=== PATIENT | female | born 1935 | race Caucasian/White ===

== ENCOUNTER → 2020-01-18 10:07 | Outpatient (CLI) | payer MEDICARE, SELFPAY ==
--- NOTE | 2020-01-18 10:10 | DI.RAD.S_ITS ---
PROCEDURE: XR LUMBAR SPINE MIN 4V INDICATIONS: Chronic LBP TECHNIQUE: 5 views of the lumbar spine were acquired. COMPARISON: [facility] [place], CR, XR LUMBAR SPINE WITH OBLIQUES, 09/19/2017, 15:23. FINDINGS: Bones: The 5 nonrib-bearing vertebrae are present. There is a mild to moderate degree of degenerative disc disease at L4-5 and L5-S1 with facet osteoarthritis symmetric bilaterally and moderate in severity at these 2 levels. This is associated with grade 1 anterolisthesis of L4 on L5 which likely would predispose to spinal and foraminal stenosis at that level otherwise there is normal bony alignment. There is a new finding of endplate vertebral body compression fractures involving the adjacent inferior endplate of L1 and superior endplate of L2 when compared to the 2018 plain films. No suspicious bony lesions. Soft tissues: Overlying bowel gas pattern is normal. No suspicious soft tissue calcifications. Oblique images: No pars defects. IMPRESSION: Mild to moderate lower lumbosacral spine degenerative disc disease and moderate facet osteoarthritis at L4-5 and L5-S1. Ligamen this laxity allows anterolisthesis grade 1 of L4 on L5. This is stable from 2018. Note is made of a superior endplate impaction fracture, potentially chronic in this clinical circumstance, at L2 and to a lesser degree at the inferior endplate of L1. This finding, however, was not present on comparison lumbosacral spine plain films 09/19/17. Dictated by: Deo Jamil M.D. on 01/18/2020 at 11:06 Approved by: Deo Jamil M.D. on 01/18/2020 at 11:10
== END ==
PROVIDERS: PCP Family Medicine; Referring Provider Physical Medicine & Rehabilitation; Visit Provider Physical Medicine & Rehabilitation
DX: M54.5 Low back pain (principal); M51.16 Intervertebral disc disorders with radiculopathy, lumbar region; M51.17 Intervertebral disc disorders with radiculopathy, lumbosacral region; M47.26 Other spondylosis with radiculopathy, lumbar region; M47.27 Other spondylosis with radiculopathy, lumbosacral region; M43.16 Spondylolisthesis, lumbar region; S32.010A Wedge compression fracture of first lumbar vertebra, initial encounter for closed fracture; S32.020A Wedge compression fracture of second lumbar vertebra, initial encounter for closed fracture; G89.29 Other chronic pain; Z86.79 Personal history of other diseases of the circulatory system
CPT/HCPCS: 72110; 99214

== ENCOUNTER → 2020-01-19 13:50 | Outpatient (CLI) | payer MEDICARE, SELFPAY ==
--- NOTE | 2020-01-19 13:52 | DI.MRI.S_ITS ---
PROCEDURE: MR LUMBAR SPINE WO CON INDICATIONS: L1, L2 compression fracture as well as L4-5 stenosis TECHNIQUE: Noncontrast sagittal T1 spin echo and T2 fast echo, sagittal STIR, axial T1 and T2 fast spin echo through the lumbar spine. In cases with scoliosis, additional coronal T2 fast spin echo may be performed. COMPARISON: [facility], CR, XR LUMBAR SPINE MIN 4V, 01/18/2020, 10:03. [facility], CR, XR LUMBAR SPINE WITH OBLIQUES, 09/19/2017, 15:23. FINDINGS: Image quality: Excellent. Alignment and Curvature: Grade 1 retrolisthesis of L1 on L2 and grade 1 anterolisthesis of L4 on L5 Bone Marrow: Mild L1 compression fracture Endplate marrow signal changes at L1-L2 and at the superior endplate of L4, indeterminate etiology. This could be reactive/degenerative although cannot exclude acute fracture. No distinct low signal fracture line is seen. Multilevel degenerative endplate sclerosis and spurring. Diffuse facet arthropathy. No acute vertebral body compression fractures. Spinal Cord: Conus medullaris terminates at the L1 level. Visualized cord demonstrates normal signal and size. Paraspinous Soft Tissues: No paravertebral masses. L1-L2: Moderate canal narrowing. Partial effacement of both lateral recesses with bilaterally symmetric appearance. Moderate to severe bilateral foraminal stenosis with nerve root compression. L2-L3: Normal appearance. L3-L4: Dorsal epidural lipomatosis. Mild to moderate canal narrowing. Partial effacement of both lateral recesses with bilaterally symmetric appearance. Mild bilateral foraminal narrowing L4-L5: Severe canal stenosis. Partial effacement of both lateral recesses with bilaterally symmetric appearance. Severe bilateral foraminal stenoses with nerve root compression L5-S1: Normal appearance. IMPRESSION: Mild L1 compression fracture. There is marrow edema within the L1 vertebral body in keeping with acute age. Additional marrow edema within the L4 and L2 vertebral bodies which could be additional acute endplate fractures. Severe L4-L5 canal stenosis Moderate L1-L2 canal stenosis Diffuse bilateral foraminal stenoses as detailed above by spinal level Multilevel spondylolisthesis as above. Dictated by: Dion Martinez M.D. on 01/19/2020 at 16:12 Approved by: Dion Martinez M.D. on 01/19/2020 at 16:29
== END ==
PROVIDERS: PCP Family Medicine; Referring Provider Physical Medicine & Rehabilitation; Visit Provider Physical Medicine & Rehabilitation
DX: S32.010A Wedge compression fracture of first lumbar vertebra, initial encounter for closed fracture (principal); S32.020A Wedge compression fracture of second lumbar vertebra, initial encounter for closed fracture; M43.16 Spondylolisthesis, lumbar region; M47.816 Spondylosis without myelopathy or radiculopathy, lumbar region; M48.061 Spinal stenosis, lumbar region without neurogenic claudication
CPT/HCPCS: 72148

== ENCOUNTER → 2020-03-30 10:57 | Outpatient (CLI) | payer MEDICARE, SELFPAY ==
--- NOTE | 2020-03-30 11:00 | DI.RAD.S_ITS ---
PROCEDURE: XR LUMBAR SPINE MIN 4V INDICATIONS: Follow-up L1-L2 fracture TECHNIQUE: 5 views of the lumbar spine were acquired. COMPARISON: [facility], MR, MR LUMBAR SPINE WO CON, 01/19/2020, 15:02. [facility], CR, XR LUMBAR SPINE MIN 4V, 01/18/2020, 10:03. FINDINGS: Bones: 5 nonrib-bearing vertebrae are present. There is grade 2 L4-L5 anterolisthesis secondary to facet hypertrophy. L1 , L2 and L4 compression deformities are stable compared to January 19, 2020. No suspicious bony lesions. Moderate L1-L2 degenerative disc disease. Mild to moderate L4-L5 degenerative disc disease. Moderate L3-L4, L4-L5 and L5-S1 facet arthropathy. Soft tissues: Overlying bowel gas pattern is normal. No suspicious soft tissue calcifications. Oblique images: No pars defects. IMPRESSION: L1, L2 and L4 compression fractures compared to prior studies obtained January 19, 2020 and January 18, 2020. Dictated by: Marylin Gunter MD, PhD on 03/30/2020 at 17:42 Approved by: Marylin Gunter MD, PhD on 03/30/2020 at 17:46
== END ==
PROVIDERS: PCP Family Medicine; Referring Provider Physical Medicine & Rehabilitation; Visit Provider Physical Medicine & Rehabilitation
DX: S32.010A Wedge compression fracture of first lumbar vertebra, initial encounter for closed fracture (principal); S32.020A Wedge compression fracture of second lumbar vertebra, initial encounter for closed fracture; M51.36 Other intervertebral disc degeneration, lumbar region; M47.816 Spondylosis without myelopathy or radiculopathy, lumbar region; M47.817 Spondylosis without myelopathy or radiculopathy, lumbosacral region; M43.16 Spondylolisthesis, lumbar region; M81.0 Age-related osteoporosis without current pathological fracture; Z86.79 Personal history of other diseases of the circulatory system
CPT/HCPCS: 72110; 99213

== ENCOUNTER → 2020-07-25 11:36 | Outpatient (CLI) | payer MEDICARE, SELFPAY ==
[2020-07-25 13:10] LABS: COVID19 -Nasal RAPID Negative (Negative)
== END ==
PROVIDERS: PCP Family Medicine; Visit Provider Physician Assistant
DX: Z11.59 Encounter for screening for other viral diseases (principal)
CPT/HCPCS: 87635

== ENCOUNTER 2020-07-26 09:16 | Outpatient (CLI) | payer MEDICARE, SELFPAY ==
[2020-07-26] VITALS (9 sets, daily range): BP systolic 107–141; BP diastolic 53–81; PULSE 73–94; RESP 11–21; TEMP 36.3–36.4; O2SAT 93–100
--- NOTE | 2020-07-26 09:17 | DI.RAD.S_ITS ---
PROCEDURE: PAIN L/S TRANSFORAMINAL INJECT INDICATIONS: SPONDYLOSIS COMPARISON: None. FINDINGS: Fluoroscopic spot filming was performed to verify placement of spinal needles at the left L4-L5 neural foramen level(s), as labeled on the films. Appropriate location(s) of the needle tip(s) was confirmed by injection of iodinated contrast. IMPRESSION: Successful needle tip localization for left L4-L5 neural foraminal steroid injection into the epidural space. Dictated by: Deo Jamil M.D. on 07/26/2020 at 11:07 Approved by: Deo Jamil M.D. on 07/26/2020 at 11:08
[2020-07-26] MEDS: MIDAZOLAM 5 MG/5 ML VIAL IV (10:29)
[2020-07-26] MEDS: DEXAMETHASONE 10 MG/ML VIAL 20 MG INJ (10:33)
[2020-07-26] MEDS: BETAMETHASONE 30 MG/5 ML MDV 6 MG INJ (10:33)
[2020-07-26] MEDS: IOPAMIDOL 15 ML VIAL 3 ML INJ (10:33)
[2020-07-26] MEDS: BUPIVACAINE 0.25% (PF) VIAL 2 ML INJ (10:33)
--- NOTE | 2020-07-26 10:41 | P.PCN_ITS ---
Date/Time/Diagnoses Date of procedure: 07/26/20 Time of procedure: 10:42 Pre-procedure diagnosis: 1. FORAMINAL STENOSIS WITH LE SYMPTOMS Post-procedure diagnosis: same Procedure Notes Procedure: 1. FLUOROSCOPICALLY GUIDED CONTRAST CONTROLLED TRANSFORAMINAL EPIDURAL STEROID INJECTION - LEFT L4/5 Indications: Xiomy Jackson is referred by Dr. Donis for treatment of Foraminal Stenosis with Left LE Symptoms Physician: Raphael Loo Total Fluoroscopy time (seconds): 6 Total sedation minutes: 10 Complications: none Procedure in detail & Post-procedure care: FINDINGS Foraminal Nerve Root Compression secondary to disc disease and facet hypertrophy DESCRIPTION OF PROCEDURE Following review of allergy and review of potential side effects and complications, including, but not necessarily limited to, infection, allergic reaction, local tissue breakdown, stroke, temporary or permanent nerve injury, paralysis, and possible , the patient indicated that the patient understood and agreed to proceed. An informed consent document was signed by the patient, witnessed by a nurse, and placed in the patient's chart. Additionally, other treatment options including medications, modalities, and physical therapy were reviewed with the patient. After review of previous anaesthesic history and IV conscious sedation the patient was deemed safe to proceed with today?s procedure with IV conscious sedation as ASA class II designation. Safety time-out was performed to confirm patient ID, procedure to be performed and site of procedure. IV sedation was accomplished with a combination of 2mg of Versed administered by the RN after DO order, titrated to patient comfort during the course of the procedure while the patient remained responsive to all verbal commands In the prone position following sterile prep and drape of the lumbar region, the left L4/5 posterior neuroforamen was identified fluoroscopically. The skin was anesthetized via a 25-gauge 1.5-inch needle with 1% lidocaine solution. At this point, a 25-gauge 3.5-inch spinal needle was atraumatically introduced and advanced under fluoroscopic guidance through the posterior left L4/5 neuroforamen to approximately the anterior aspect of the canal. Depth was confirmed on lateral view. Following negative aspiration, injection of approximately 1.5 cc of Isovue 200 under live fluoroscopy in the AP view confirmed excellent flow along the nerve root, into the epidural space without vascular or intrathecal uptake observed Radiological data, including multiple fluoroscopic views of the lumbosacral spine, reveal a spinal needle at the left L4/5 posterior neuroforamen. Subsequent views show flow of contrast material flowing superiorly and inferiorly along the nerve root confirming epidural flow. Subsequently, a test dose of 1.5 cc of 1% lidocaine solution was administered and patient was observed for two minutes for signs or symptoms of complications, including abdominal pain, shortness of breath, bilateral upper or lower extremity weakness, nausea and vomiting, prior to steroid injection. At this point, a total of 3cc or 20mg of dexamethasone and 6mg of betamethasone was injected without incident. The procedure tolerated the procedure well without signs or symptoms of complications prior to transfer to the recovery area continued monitoring without incident. The patient was then transferred to the recovery area where they were observed for an appropriate time after the injection. The patient reported a VAS score of 7 prior to the procedure and a post- procedure VAS of 0. POST OP INSTRUCTIONS The patient was provided a Pain Log to continue to record their response to the target-specific procedure prior to follow-up visit with their referring physicia n. Additionally, specific post-injection care instructions and a contact number to our office were provided if concerns arise regarding possible complications associated with the procedure are suspected.
== END 2020-07-26 11:05 | disposition home or self-care (01) ==
LOC: RAD 09:17
PROVIDERS: PCP Family Medicine; Referring Provider Physical Medicine & Rehabilitation; Visit Provider Physical Medicine & Rehabilitation
DX: M48.061 Spinal stenosis, lumbar region without neurogenic claudication (principal); M51.16 Intervertebral disc disorders with radiculopathy, lumbar region
CPT/HCPCS: 64483; 99152; J0702; J1100; J2250; J3010

== ENCOUNTER → 2020-09-26 14:39 | Outpatient (CLI) | payer MEDICARE, SELFPAY ==
[2020-09-26 16:10] LABS: COVID19 -Nasal RAPID Negative (Negative)
== END ==
PROVIDERS: PCP Family Medicine; Visit Provider Physical Medicine & Rehabilitation
DX: Z20.822 Contact with and (suspected) exposure to COVID-19 (principal)
CPT/HCPCS: 87635; C9803

== ENCOUNTER 2020-09-27 13:33 | Outpatient (CLI) | payer MEDICARE, SELFPAY ==
[2020-09-27] VITALS (7 sets, daily range): BP systolic 111–170; BP diastolic 62–91; PULSE 60–98; RESP 11–18; TEMP 36.9; O2SAT 96–98
--- NOTE | 2020-09-27 13:39 | DI.RAD.S_ITS ---
PROCEDURE: PAIN L/SI FACET INJ/BLK 1STL INDICATIONS: SPONDYLOSIS COMPARISON: [facility], CR, XR LUMBAR SPINE MIN 4V, 03/30/2020, 10:55. [facility], MR, MR LUMBAR SPINE WO CON, 01/19/2020, 15:02. [facility], CR, XR LUMBAR SPINE MIN 4V, 01/18/2020, 10:03. FINDINGS: Fluoroscopic spot filming was performed to verify placement of spinal needles at the L4-L5 and L5-S1 level(s), as labeled on the films. Appropriate location(s) of the needle tip(s) was confirmed by injection of iodinated contrast. IMPRESSION: Fluoroscopy for pain management. Dictated by: Zahra Pina M.D. on 09/27/2020 at 14:52 Approved by: Zahra Pina M.D. on 09/27/2020 at 14:53
[2020-09-27] MEDS: IOPAMIDOL 15 ML VIAL 3 ML INJ (14:25)
[2020-09-27] MEDS: BETAMETHASONE 30 MG/5 ML MDV 12 MG INJ (14:25)
[2020-09-27] MEDS: BUPIVACAINE 0.5% (PF) VIAL 2 ML INJ (14:25)
[2020-09-27] MEDS: MIDAZOLAM 5 MG/5 ML VIAL IV (14:25)
--- NOTE | 2020-09-27 14:34 | P.PCN_ITS ---
Date/Time/Diagnoses Date of procedure: 09/27/20 Time of procedure: 14:34 Pre-procedure diagnosis: 1. FACET ARTHROPATHY, 2. AXIAL LBP, 3. MULTILEVEL DDD Post-procedure diagnosis: same Procedure Notes Procedure: 1. FLUOROSCOPICALLY GUIDED CONTRAST CONTROLLED FACET JOINT INJECTIONS LEFT L4/5, L5/S1 Indications: Xiomy is referred by Dr. Donis for treatment of Axial LBP Physician: Raphael Loo Total Fluoroscopy time (seconds): 3 Total sedation minutes: 5 Complications: none Procedure in detail & Post-procedure care: FINDINGS Multilevel Facet Arthropathy with Clinically significant axial LBP DESCRIPTION OF PROCEDURE Fluoroscopically guided, contrast-controlled left L4/5, L5/S1 facet joint injections. Following review of allergy and review of potential side effects and complications, including, but not necessarily limited to, infection, allergic reaction, local tissue breakdown, stroke, temporary or permanent nerve injury, paralysis, and possible , the patient indicated that the patient understood and agreed to proceed. An informed consent document was signed by the patient, witnessed by a nurse, and placed in the patient's chart. Additionally, other tr eatment options including medications, modalities, and physical therapy were reviewed with the patient. After review of previous anaesthesic history and IV conscious sedation the patient was deemed safe to proceed with today?s procedure with IV conscious sedation as ASA class II designation. Safety time-out was performed to confirm patient ID, procedure to be performed and site of procedure. IV sedation was accomplished with a combination of 2mg of Versed was administered by the RN after DO order, titrated to patient comfort during the course of the procedure while the patient remained responsive to all verbal commands. In the prone position, following sterile prep and drape of the lumbar region, the posterior aspect of the left L4/5, L5/S1 facet joints were identified fluoroscopically. The skin was anesthetized via a 25-gauge 1.5-inch needle with 1% lidocaine solution into the corresponding facet joints. At this point, a 22- gauge 3.5-inch spinal needle was atraumatically introduced and advanced under fluoroscopic guidance into the corresponding facet joints. Following negative aspiration, injections of approximately 0.2-cc of Isovue 200 confirmed interarticular placement without vascular uptake. Radiological data, including multiple fluoroscopic views of the lumbosacral spine, reveal a spinal needle at the left L4/5, L5/S1 facet joints. Subsequent views show flow of contrast material both superiorly and inferiorly within the joint space without vascular or intrathecal uptake. At this point, a total of 0.5 cc including a mixture of 0.25cc Marcaine and 0.25cc betamethasone was injected without complication into each of the corresponding facet joints. The procedure tolerated the procedure well without signs or symptoms of complications prior to transfer to the recovery area continued monitoring without incident. The patient was then transferred to the recovery area where they were observed for an appropriate period of time after the injection. The patient reported a VAS score of 7 prior to the procedure and a post-procedure VAS of 0. POST OP INSTRUCTIONS The patient was provided a Pain Log to continue to record their response to the target-specific procedure prior to follow-up visit with their referring physician. Additionally, specific post-injection care instructions and a contact number to our office were provided if concerns arise regarding possible complications associated with the procedure are suspected.
== END 2020-09-27 15:00 | disposition home or self-care (01) ==
PROVIDERS: PCP Family Medicine; Referring Provider Physical Medicine & Rehabilitation; Visit Provider Physical Medicine & Rehabilitation
DX: M47.816 Spondylosis without myelopathy or radiculopathy, lumbar region (principal); M47.817 Spondylosis without myelopathy or radiculopathy, lumbosacral region; M54.5 Low back pain; M51.36 Other intervertebral disc degeneration, lumbar region; M51.37 Other intervertebral disc degeneration, lumbosacral region
CPT/HCPCS: 64493; 64494; J0702; J2250; J3010

== ENCOUNTER → 2020-11-15 13:50 | Outpatient (CLI) | payer MEDICARE, SELFPAY ==
[2020-11-15 15:46] LABS: COVID19 -Nasal RAPID Negative (Negative)
== END ==
PROVIDERS: PCP Family Medicine; Visit Provider Physical Medicine & Rehabilitation
DX: Z20.822 Contact with and (suspected) exposure to COVID-19 (principal)
CPT/HCPCS: 87635; C9803

== ENCOUNTER 2020-11-17 07:17 | Outpatient (CLI) | payer MEDICARE, SELFPAY ==
[2020-11-17] VITALS (9 sets, daily range): BP systolic 124–146; BP diastolic 59–97; PULSE 78–112; RESP 16–20; TEMP 36.7; O2SAT 94–99
--- NOTE | 2020-11-17 07:19 | DI.RAD.S_ITS ---
PROCEDURE: PAIN L/S TRANSFORAMINAL INJECT INDICATIONS: SPONDYLOSIS COMPARISON: [facility], MR, MR LUMBAR SPINE WO CON, 01/19/2020, 15:02. [facility], CR, XR LUMBAR SPINE MIN 4V, 03/30/2020, 10:55. FINDINGS: Fluoroscopic spot filming was performed to verify placement of spinal needles at the left L4-L5 level(s), as labeled on the films. Appropriate location(s) of the needle tip(s) was confirmed by injection of iodinated contrast. IMPRESSION: Fluoroscopy for pain management. Dictated by: Zahra Pina M.D. on 11/17/2020 at 9:35 Approved by: Zahra Pina M.D. on 11/17/2020 at 9:35
[2020-11-17] MEDS: MIDAZOLAM 5 MG/5 ML VIAL IV (08:16)
[2020-11-17] MEDS: IOPAMIDOL 15 ML VIAL 3 ML INJ (08:22)
[2020-11-17] MEDS: methylPREDNISolone acetate 80 MG/ML VIAL INJ (08:22)
[2020-11-17] MEDS: BUPIVACAINE 0.25% (PF) VIAL 2 ML INJ (08:22)
[2020-11-17] MEDS: DEXAMETHASONE 10 MG/ML VIAL 20 MG INJ (08:22)
--- NOTE | 2020-11-17 08:30 | P.PCN_ITS ---
Date/Time/Diagnoses Date of procedure: 11/17/20 Time of procedure: 08:31 Pre-procedure diagnosis: 1. FORAMINAL STENOSIS WITH LE SYMPTOMS Post-procedure diagnosis: same Procedure Notes Procedure: 1. FLUOROSCOPICALLY GUIDED CONTRAST CONTROLLED TRANSFORAMINAL EPIDURAL STEROID INJECTION - LEFT L4/5 SubNeural Indications: Xiomy Jackson is referred by Dr. Donis for treatment of Foraminal Stenosis with Left LE Symptoms Physician: Raphael Loo Total Fluoroscopy time (seconds): 9 Total sedation minutes: 12 Complications: none Procedure in detail & Post-procedure care: FINDINGS Foraminal Nerve Root Compression secondary to disc disease and facet hypertrophy DESCRIPTION OF PROCEDURE Following review of allergy and review of potential side effects and complications, including, but not necessarily limited to, infection, allergic reaction, local tissue breakdown, stroke, temporary or permanent nerve injury, paralysis, and possible , the patient indicated that the patient understood and agreed to proceed. An informed consent document was signed by the patient, witnessed by a nurse, and placed in the patient's chart. Additionally, other treatment options including medications, modalities, and physical therapy were reviewed with the patient. After review of previous anaesthesic history and IV conscious sedation the patient was deemed safe to proceed with today?s procedure with IV conscious sedation as ASA class II designation. Safety time-out was performed to confirm patient ID, procedure to be performed and site of procedure. IV sedation was accomplished with a combination of 2mg of Versed administered by the RN after DO order, titrated to patient comfort during the course of the procedure while the patient remained responsive to all verbal commands In the prone position following sterile prep and drape of the lumbar region, the left L4/5 posterior neuroforamen was identified fluoroscopically. The skin was anesthetized via a 25-gauge 1.5-inch needle with 1% lidocaine solution. At this point, a 25-gauge 3.5-inch spinal needle was atraumatically introduced and advanced under fluoroscopic guidance through the posterior left L4/5 neuroforamen to approximately the anterior aspect of the canal. Depth was confirmed on lateral view. Following negative aspiration, injection of approximately 1.5 cc of Isovue 200 under live fluoroscopy in the AP view confirmed excellent flow along the nerve root, into the epidural space without vascular or intrathecal uptake observed Radiological data, including multiple fluoroscopic views of the lumbosacral sp ine, reveal a spinal needle at the left L4/5 posterior neuroforamen. Subsequent views show flow of contrast material flowing superiorly and inferiorly along the nerve root confirming epidural flow. Subsequently, a test dose of 1.5 cc of 1% lidocaine solution was administered and patient was observed for two minutes for signs or symptoms of complications, including abdominal pain, shortness of breath, bilateral upper or lower extremity weakness, nausea and vomiting, prior to steroid injection. At this point, a total of 3cc or 20mg of dexamethasone and 80mg of Depo medrol was injected without incident. The procedure tolerated the procedure well without signs or symptoms of complications prior to transfer to the recovery area continued monitoring without incident. The patient was then transferred to the recovery area where they were observed for an appropriate time after the injection. The patient reported a VAS score of 7 prior to the procedure and a post- procedure VAS of 0. POST OP INSTRUCTIONS The patient was provided a Pain Log to continue to record their response to the target-specific procedure prior to follow-up visit with their referring physician. Additionally, specific post-injection care instructions and a contact number to our office were provided if concerns arise regarding possible complications associated with the procedure are suspected.
== END 2020-11-17 08:53 | disposition home or self-care (01) ==
LOC: RAD 07:19
PROVIDERS: PCP Family Medicine; Referring Provider Family Medicine; Visit Provider Physical Medicine & Rehabilitation
DX: M48.061 Spinal stenosis, lumbar region without neurogenic claudication (principal); M51.16 Intervertebral disc disorders with radiculopathy, lumbar region
CPT/HCPCS: 64483; 99152; J1040; J1100; J2250; J3010

== ENCOUNTER → 2021-09-25 11:32 | Outpatient (CLI) | payer MEDICARE, OTHER, SELFPAY ==
[2021-09-25 13:16] LABS: COVID19 -Nasal RAPID Negative (Negative)
== END ==
PROVIDERS: PCP Family Medicine; Visit Provider Physical Medicine & Rehabilitation
DX: Z20.822 Contact with and (suspected) exposure to COVID-19 (principal)
CPT/HCPCS: 87635; C9803

== ENCOUNTER 2021-09-26 10:02 | Outpatient (CLI) | payer MEDICARE, OTHER, SELFPAY ==
--- NOTE | 2021-09-26 10:03 | DI.RAD.S_ITS ---
PROCEDURE: PAIN L/S TRANSFORAMINAL INJECT INDICATIONS: SPONDYLOSIS COMPARISON: [facility], , PAIN L/S TRANSFORAMINAL INJECT, 11/17/2020, 8:23. FINDINGS: Fluoroscopic spot filming was performed to verify placement of a spinal needle at the L4-L5 level, as labeled on the films. Appropriate location of the needle tip was confirmed by injection of iodinated contrast. IMPRESSION: Intraprocedural examination within normal limits. Dictated by: Don Palma M.D. on 09/26/2021 at 11:00 Approved by: Don Palma M.D. on 09/26/2021 at 11:00
[2021-09-26 10:42] VITALS: BP 139/81; PULSE 82; RESP 15; TEMP 36.8; O2SAT 99
[2021-09-26 11:35] VITALS: BP 151/74; BP 181/92; PULSE 82; RESP 15; RESP 21; O2SAT 98
[2021-09-26] MEDS: MIDAZOLAM 5 MG/5 ML VIAL IV (11:35)
[2021-09-26 11:38] VITALS: BP 131/71; PULSE 82; RESP 22; O2SAT 96
[2021-09-26] MEDS: BUPIVACAINE 0.25% (PF) VIAL 2 ML INJ (11:39)
[2021-09-26] MEDS: IOPAMIDOL 15 ML VIAL 3 ML INJ (11:39)
[2021-09-26] MEDS: BETAMETHASONE 30 MG/5 ML MDV 6 MG INJ (11:40)
[2021-09-26] MEDS: DEXAMETHASONE 10 MG/ML VIAL 20 MG INJ (11:40)
[2021-09-26 11:42] VITALS: BP 159/67; PULSE 79; RESP 23; O2SAT 95
[2021-09-26 11:45] VITALS: BP 135/65; PULSE 73; RESP 22; O2SAT 98
--- NOTE | 2021-09-26 11:52 | P.PCN_ITS ---
Date/Time/Diagnoses Date of procedure: 09/26/21 Time of procedure: 11:52 Pre-procedure diagnosis: 1. FORAMINAL STENOSIS WITH LE SYMPTOMS This procedure is found to meet the Governor's proclamation 20-24.2 regarding non urgent procedures. This patient meets multiple criteria for the procedure including continuing or worsening of significant or severe pain, combined with further deterioration of the patient's condition or overall health as well as delay in treatment would be expected to result in less positive ultimate medical outcome. Therefore the decision to perform the procedure in an outpatient hospital setting is found to be in accordance with guidelines of the proclamation. Post-procedure diagnosis: same Procedure Notes Procedure: 1. FLUOROSCOPICALLY GUIDED CONTRAST CONTROLLED TRANSFORAMINAL EPIDURAL STEROID INJECTION - LEFT L4/5 Indications: Xiomy Jackson is referred by Dr. Donis for treatment of Foraminal Stenosis with Left LE Symptoms Physician: Raphael Loo Total Fluoroscopy time (seconds): 7 Total sedation minutes: 11 Complications: none Procedure in detail & Post-procedure care: FINDINGS Foraminal Nerve Root Compression secondary to disc disease and facet hypertrophy DESCRIPTION OF PROCEDURE Following review of allergy and review of potential side effects and complications, including, but not necessarily limited to, infection, allergic reaction, local tissue breakdown, stroke, temporary or permanent nerve injury, paralysis, and possible , the patient indicated that the patient understood and agreed to proceed. An informed consent document was signed by the patient, witnessed by a nurse, and placed in the patient's chart. Additionally, other treatment options including medications, modalities, and physical therapy were reviewed with the patient. After review of previous anaesthesic history and IV conscious sedation the patient was deemed safe to proceed with today?s procedure with IV conscious sedation as ASA class II designation. Safety time-out was performed to confirm patient ID, procedure to be performed and site of procedure. IV sedation was accomplished with a combination of 2mg of Versed administered by the RN after DO order, titrated to patient comfort during the course of the procedure while the patient remained responsive to all verbal commands In the prone position following sterile prep and drape of the lumbar region, the left L4/5 posterior neuroforamen was identified fluoroscopically. The skin was anesthetized via a 25-gauge 1.5-inch needle with 1% lidocaine solution. At this point, a 25-gauge 3.5-inch spinal needle was atraumatically introduced and advanced under fluoroscopic guidance through the posterior left L4/5 neuroforamen to approximately the anterior aspect of the canal. Depth was confirmed on lateral view. Following negative aspiration, injection of approximately 1.5 cc of Isovue 200 under live fluoroscopy in the AP view confirmed excellent flow along the nerve root, into the epidural space without vascular or intrathecal uptake observed Radiological data, including multiple fluoroscopic views of the lumbosacral spine, reveal a spinal needle at the left L4/5 posterior neuroforamen. Subsequent views show flow of contrast material flowing superiorly and inferiorly along the nerve root confirming epidural flow. Subsequently, a test dose of 1.5 cc of 1% lidocaine solution was administered and patient was observed for two minutes for signs or symptoms of complications, including abdominal pain, shortness of breath, bilateral upper or lower extremity weakness, nausea and vomiting, prior to steroid injection. At this point, a total of 3cc or 20mg of dexamethasone and 6mg of betamethasone was injected without incident. The procedure tolerated the procedure well without signs or symptoms of complications prior to transfer to the recovery area continued monitoring without incident. The patient was then transferred to the recovery area where they were observed for an appropriate time after the injection. The patient reported a VAS score of 7 prior to the procedure and a post- procedure VAS of 0. POST OP INSTRUCTIONS The patient was provided a Pain Log to continue to record their response to the target-specific procedure prior to follow-up visit with their referring physician. Additionally, specific post-injection care instructions and a contact number to our office were provided if concerns arise regarding possible complications associated with the procedure are suspected.
[2021-09-26 12:04] VITALS: BP 139/75; PULSE 87; RESP 15; O2SAT 97
== END 2021-09-26 12:11 | disposition home or self-care (01) ==
PROVIDERS: PCP Family Medicine; Referring Provider Physical Medicine & Rehabilitation; Visit Provider Physical Medicine & Rehabilitation
DX: M48.061 Spinal stenosis, lumbar region without neurogenic claudication (principal); M51.16 Intervertebral disc disorders with radiculopathy, lumbar region
CPT/HCPCS: 64483; 99152; J0702; J1100; J2250; J3010

== ENCOUNTER 2023-03-21 12:30 | Outpatient (CLI) | payer MEDICARE, OTHER, SELFPAY ==
[2023-03-21] VITALS (8 sets, daily range): BP systolic 117–146; BP diastolic 58–80; PULSE 66–83; RESP 12–20; TEMP 36.6; O2SAT 94–98
--- NOTE | 2023-03-21 12:32 | DI.RAD.S_ITS ---
PROCEDURE: PAIN L/S TRANSFORAMINAL INJECT INDICATIONS: SPONDYLOSIS COMPARISON: [facility], , PAIN L/S TRANSFORAMINAL INJECT, 09/26/2021, 12:40. FINDINGS: Fluoroscopic spot filming was performed to verify placement of spinal needles at the left L4-L5 neural foramen level(s), as labeled on the films. Appropriate location(s) of the needle tip(s) was confirmed by injection of iodinated contrast. IMPRESSION: Access needle at the left L4-L5 neural foramen for transforaminal epidural steroid injection. Dictated by: Marylin Gunter MD, PhD on 03/21/2023 at 14:51 Approved by: Marylin Gunter MD, PhD on 03/21/2023 at 14:51
[2023-03-21] MEDS: MIDAZOLAM 2 MG/2 ML VIAL IV (13:57)
[2023-03-21] MEDS: BETAMETHASONE 30 MG/5 ML MDV 6 MG INJ (14:05)
[2023-03-21] MEDS: IOPAMIDOL 15 ML VIAL 3 ML INJ (14:05)
[2023-03-21] MEDS: DEXAMETHASONE 10 MG/ML VIAL 20 MG INJ (14:06)
[2023-03-21] MEDS: BUPIVACAINE 0.25% (PF) VIAL 2 ML INJ (14:08)
--- NOTE | 2023-03-21 14:16 | P.PCN_ITS ---
Date/Time/Diagnoses Date of procedure: 03/21/23 Time of procedure: 14:16 Pre-procedure diagnosis: 1. FORAMINAL STENOSIS WITH LE SYMPTOMS Post-procedure diagnosis: same Procedure Notes Procedure: 1. FLUOROSCOPICALLY GUIDED CONTRAST CONTROLLED TRANSFORAMINAL EPIDURAL STEROID INJECTION - RIGHT L4/5 TFESI Indications: Xiomy/Manuel is referred by Dr. Donis for treatment of Foraminal Stenosis with Right LE Symptoms Physician: Raphael Loo Total Fluoroscopy time (seconds): 10 Total sedation minutes: 12 Complications: none Procedure in detail & Post-procedure care: FINDINGS Foraminal Nerve Root Compression secondary to disc disease and facet hypertrophy DESCRIPTION OF PROCEDURE Following review of allergy and review of potential side effects and complications, including, but not necessarily limited to, infection, allergic reaction, local tissue breakdown, stroke, temporary or permanent nerve injury, paralysis, and possible , the patient indicated that the patient understood and agreed to proceed. An informed consent document was signed by the patient, witnessed by a nurse, and placed in the patient's chart. Additionally, other treatment options including medications, modalities, and physical therapy were reviewed with the patient. After review of previous anaesthesic history and IV conscious sedation the patient was deemed safe to proceed with today?s procedure with IV conscious sedation as ASA class II designation. Safety time-out was performed to confirm patient ID, procedure to be performed and site of procedure. IV sedation was accomplished with a combination of 2mg of Versed was administered by the RN after DO order, titrated to patient comfort during the course of the procedure while the patient remained responsive to all verbal commands In the prone position following sterile prep and drape of the lumbar region, the right L4/5 posterior neuroforamen was identified fluoroscopically. The skin was anesthetized via a 25-gauge 1.5-inch needle with 1% lidocaine solution. At this point, a 25-gauge 3.5-inch spinal needle was atraumatically introduced and advanced under fluoroscopic guidance through the posterior right L4/5 neuroforamen to approximately the anterior aspect of the canal. Depth was confirmed on lateral view. Following negative aspiration, injection of approximately 1.5cc of Isovue 200 under live fluoroscopy in the AP view confirmed excellent flow along the nerve root, into the epidural space without vascular or intrathecal uptake observed Radiological data, including multiple fluoroscopic views of the lumbosacral spine, reveal a spinal needle at the right L4/5 posterior neuroforamen. Subsequent views show flow of contrast material flowing superiorly and inferiorly along the nerve root confirming epidural flow. Subsequently, a test dose of 1.5 cc of 1% lidocaine solution was administered and patient was observed for two minutes for signs or symptoms of complications, including abdominal pain, shortness of breath, bilateral upper or lower extremity weakness, nausea and vomiting, prior to steroid injection. At this point, a total of 3cc or 20mg of dexamethasone and 6mg of betamethasone was injected without incident. The procedure tolerated the procedure well without signs or symptoms of complications prior to transfer to the recovery area continued monitoring without incident. The patient was then transferred to the recovery area where they were observed for an appropriate time after the injection. The patient reported a VAS score of 7 prior to the procedure and a post- procedure VAS of 0. POST OP INSTRUCTIONS The patient was provided a Pain Log to continue to record their response to the target-specific procedure prior to follow-up visit with their referring physician. Additionally, specific post-injection care instructions and a contact number to our office were provided if concerns arise regarding possible complications associated with the procedure are suspected.
== END 2023-03-21 14:34 | disposition home or self-care (01) ==
LOC: RAD 12:31
PROVIDERS: PCP Family Medicine; Referring Provider Physical Medicine & Rehabilitation; Visit Provider Physical Medicine & Rehabilitation
DX: M48.061 Spinal stenosis, lumbar region without neurogenic claudication (principal); M51.16 Intervertebral disc disorders with radiculopathy, lumbar region
CPT/HCPCS: 64483; 99152; J0702; J1100; J2250; J3490

== ENCOUNTER 2023-10-15 12:48 | Outpatient (CLI) | payer MEDICARE, OTHER, SELFPAY ==
[2023-10-15] VITALS (8 sets, daily range): BP systolic 135–167; BP diastolic 65–88; PULSE 71–84; RESP 16–20; TEMP 36.4; O2SAT 96–98
--- NOTE | 2023-10-15 13:30 | DI.RAD.S_ITS ---
PROCEDURE: PAIN L/S TRANSFORAMINAL INJECT INDICATIONS: SPONDYLOSIS COMPARISON: [facility], , PAIN L/S TRANSFORAMINAL INJECT, 03/21/2023, 14:02. FINDINGS: Fluoroscopic spot filming was performed to verify placement of spinal needles at the L4-5 level(s), as labeled on the films. Appropriate location(s) of the needle tip(s) was confirmed by injection of iodinated contrast. IMPRESSION: Fluoro guidance was provided intraoperatively for left L4-5 transforaminal MARTÍN performed by ordering physician. Dictated by: Rocky Martins M.D. on 10/15/2023 at 17:53 Approved by: Rocky Martins M.D. on 10/15/2023 at 17:54
[2023-10-15] MEDS: iopamidoL 15 ML VIAL 3 ML INJ (14:07)
[2023-10-15] MEDS: DEXAMETHASONE 10 MG/ML VIAL INJ (14:08)
[2023-10-15] MEDS: BETAMETHASONE 30 MG/5 ML MDV 6 MG INJ (14:08)
[2023-10-15] MEDS: BUPIVACAINE 0.25% (PF) VIAL 2 ML INJ (14:08)
[2023-10-15] MEDS: MIDAZOLAM 2 MG/2 ML VIAL 1 MG IV (14:09)
--- NOTE | 2023-10-15 14:23 | P.PCN_ITS ---
Date/Time/Diagnoses Date of procedure: 10/15/23 Time of procedure: 14:23 Pre-procedure diagnosis: 1. FORAMINAL STENOSIS WITH LE SYMPTOMS Post-procedure diagnosis: same Procedure Notes Procedure: 1. FLUOROSCOPICALLY GUIDED CONTRAST CONTROLLED TRANSFORAMINAL EPIDURAL STEROID INJECTION - LEFT L4/5 Indications: Xiomy Jackson is referred by Dr. Pichardo for treatment of Foraminal Stenosis with Left LE Symptoms Physician: Raphael Loo Total Fluoroscopy time (seconds): 13 Total sedation minutes: 14 Complications: none Procedure in detail & Post-procedure care: FINDINGS Foraminal Nerve Root Compression secondary to disc disease and facet hypertrophy DESCRIPTION OF PROCEDURE Following review of allergy and review of potential side effects and complications, including, but not necessarily limited to, infection, allergic reaction, local tissue breakdown, stroke, temporary or permanent nerve injury, paralysis, and possible , the patient indicated that the patient understood and agreed to proceed. An informed consent document was signed by the patient, witnessed by a nurse, and placed in the patient's chart. Additionally, other treatment options including medications, modalities, and physical therapy were reviewed with the patient. After review of previous anaesthesic history and IV conscious sedation the patient was deemed safe to proceed with today?s procedure with IV conscious sedation as ASA class II designation. Safety time-out was performed to confirm patient ID, procedure to be performed and site of procedure. IV sedation was accomplished with a combination of 1mg of Versed administered by the RN after DO order, titrated to patient comfort during the course of the procedure while the patient remained responsive to all verbal commands In the prone position following sterile prep and drape of the lumbar region, the left L4/5 posterior neuroforamen was identified fluoroscopically. The skin was anesthetized via a 25-gauge 1.5-inch needle with 1% lidocaine solution. At this point, a 25-gauge 3.5-inch spinal needle was atraumatically introduced and advanced under fluoroscopic guidance through the posterior left L4/5 neuroforamen to approximately the anterior aspect of the canal. Depth was confirmed on lateral view. Following negative aspiration, injection of approximately 1.5 cc of Isovue 200 under live fluoroscopy in the AP view confirmed excellent flow along the nerve root, into the epidural space without vascular or intrathecal uptake observed Radiological data, including multiple fluoroscopic views of the lumbosacral spine, reveal a spinal needle at the left L4/5 posterior neuroforamen. Subsequent views show flow of contrast material flowing superiorly and inferiorly along the nerve root confirming epidural flow. Subsequently, a test dose of 1.5 cc of 1% lidocaine solution was administered and patient was observed for two minutes for signs or symptoms of complications, including abdominal pain, shortness of breath, bilateral upper or lower extremity weakness, nausea and vomiting, prior to steroid injection. At this point, a total of 2cc or 10mg of dexamethasone and 6mg of betamethasone was injected without incident. The procedure tolerated the procedure well without signs or symptoms of complications prior to transfer to the recovery area continued monitoring without incident. The patient was then transferred to the recovery area where they were observed for an appropriate time after the injection. The patient reported a VAS score of 7 prior to the procedure and a post- procedure VAS of 0. POST OP INSTRUCTIONS The patient was provided a Pain Log to continue to record their response to the target-specific procedure prior to follow-up visit with their referring physici an. Additionally, specific post-injection care instructions and a contact number to our office were provided if concerns arise regarding possible complications associated with the procedure are suspected.
--- NOTE | 2023-10-15 14:34 | PC.NURSE ---
Patient reported during intake that she usually goes out to dinner and then drives herself home. Educated on sedation and reiterated need for a ride for this procedure, pt verbalized understanding. Patient states she does not have a ride home today. Instructed that she will not be able to get sedation due to no ride, patient agreeable. Dr. Loo made aware that the patient does not have a ride. Patient returned to pre-post after injection and received 1 mg of versed. Patient again educated and instructed on need for ride with sedation procedures. Patient states her brother will drive her home upon discharge.
--- NOTE | 2023-10-17 14:23 | PC.NURSE ---
Patient called by this nurse to check in to see how she was doing since her lumbar injection on 10/15/23. No answer. This nurse left a message reminding her to call the clinic's phone number that is on the green discharge sheet if she has any questions or concerns.
== END 2023-10-15 14:58 | disposition home or self-care (01) ==
PROVIDERS: PCP Family Medicine; Referring Provider Physical Medicine & Rehabilitation; Visit Provider Physical Medicine & Rehabilitation
DX: M48.061 Spinal stenosis, lumbar region without neurogenic claudication (principal); M51.16 Intervertebral disc disorders with radiculopathy, lumbar region
CPT/HCPCS: 64483; 99152; J0702; J1100; J2250; J3490

== ENCOUNTER → 2025-01-22 13:07 | Outpatient (CLI) | payer MEDICARE, OTHER, SELFPAY ==
--- NOTE | 2025-01-22 13:08 | DI.RAD.S_ITS ---
PROCEDURE: XR LUMBAR SPINE MIN 4V INDICATIONS: BACK PAIN TECHNIQUE: 5 views of the lumbar spine were acquired, including bilateral oblique views. COMPARISON: [facility], , XR LUMBAR SPINE MIN 4V, 03/30/2020, 10:55. FINDINGS: Bones: 5 nonrib-bearing vertebrae are present. There is mild S shaped scoliosis of thoracolumbar spine increased compared to 2020 study. Chronic appearing compression deformity involving superior endplate of L2 vertebral body is seen. Chronic appearing anterior wedge compression deformity involving L1 vertebral body is also seen. Chronic appearing mild superior endplate compression deformity at L4 level is also seen and unchanged. No acute vertebral body compression fracture. 4 mm retrolisthesis of L1 on L2 and 6 mm anterolisthesis of L4 on L5 is seen. Degenerative endplate changes are noted throughout lumbar spine. Bilateral facet arthrosis at L2-3 through L5-S1 levels are also seen. Soft tissues: Overlying bowel gas pattern is normal. No suspicious soft tissue calcifications. Oblique images: No gross pars defects. IMPRESSION: Degenerative disc disease throughout lumbar spine progressed compared to 2020 study. Chronic appearing compression deformities at L1, L2 and L4 levels. No acute vertebral body compression fracture. No gross pars defects. Stable grade 1 spondylolisthesis at L1-2 and L4-5 levels. Dictated by: Rocky Martins M.D. on 01/22/2025 at 14:42 Approved by: Rocky Martins M.D. on 01/22/2025 at 14:45
== END ==
PROVIDERS: PCP Family Medicine; Referring Provider Physical Medicine & Rehabilitation; Visit Provider Physical Medicine & Rehabilitation
DX: M51.369 Other intervertebral disc degeneration, lumbar region without mention of lumbar back pain or lower extremity pain (principal); M43.8X6 Other specified deforming dorsopathies, lumbar region; M43.16 Spondylolisthesis, lumbar region; M47.816 Spondylosis without myelopathy or radiculopathy, lumbar region; S32.010S Wedge compression fracture of first lumbar vertebra, sequela; S32.020S Wedge compression fracture of second lumbar vertebra, sequela; M19.071 Primary osteoarthritis, right ankle and foot; Z68.31 Body mass index [BMI] 31.0-31.9, adult; M54.17 Radiculopathy, lumbosacral region; M75.41 Impingement syndrome of right shoulder; M81.0 Age-related osteoporosis without current pathological fracture; M19.019 Primary osteoarthritis, unspecified shoulder
CPT/HCPCS: 72110; 99214

== ENCOUNTER 2025-07-27 13:41 | Outpatient (CLI) | payer MEDICARE, OTHER, SELFPAY ==
[2025-07-27] VITALS (8 sets, daily range): BP systolic 121–171; BP diastolic 78–98; PULSE 78–99; RESP 15–20; TEMP 37.4; O2SAT 95–99
[2025-07-27] MEDS: MIDAZOLAM 2 MG/2 ML VIAL 1 MG IV (15:31)
[2025-07-27] MEDS: BETAMETHASONE 30 MG/5 ML MDV 12 MG INJ (15:38)
[2025-07-27] MEDS: LIDOCAINE 1% 20 ML 5 ML INJ (15:39)
[2025-07-27] MEDS: BETAMETHASONE 30 MG/5 ML MDV 6 MG INJ (15:40)
--- NOTE | 2025-07-27 15:51 | PM.PROC.IR.1 ---
Date/Time/Diagnoses Date of procedure: 07/27/25 Time of procedure: 15:51 Pre-procedure diagnosis: 1. FORAMINAL STENOSIS WITH LE SYMPTOMS Procedure Notes Procedure: 1. FLUOROSCOPICALLY GUIDED CONTRAST CONTROLLED TRANSFORAMINAL EPIDURAL STEROID INJECTION - BILATERAL L4/5 TFESI Indications: Xiomy is referred by Dr. Barron for treatment of Foraminal Stenosis with bilateral LE Symptoms Physician: Raphael Loo Total Fluoroscopy time (seconds): 13 Total sedation minutes: 14 Complications: none Procedure in detail & Post-procedure care: FINDINGS Foraminal Nerve Root Compression secondary to disc disease and facet hypertrophy DESCRIPTION OF PROCEDURE Following review of allergy and review of potential side effects and complications, including, but not necessarily limited to, infection, allergic reaction, local tissue breakdown, stroke, temporary or permanent nerve injury, paralysis, and possible , the patient indicated that the patient understood and agreed to proceed. An informed consent document was signed by the patient, witnessed by a nurse, and placed in the patient's chart. Additionally, other treatment options including medications, modalities, and physical therapy were reviewed with the patient. After review of previous anaesthesic history and IV conscious sedation the patient was deemed safe to proceed with today?s procedure with IV conscious sedation as ASA class II designation. Safety time-out was performed to confirm patient ID, procedure to be performed and site of procedure. IV sedation was accomplished with a combination of 1mg of Versed was administered by the RN after DO order, titrated to patient comfort during the course of the procedure while the patient remained responsive to all verbal commands In the prone position following sterile prep and drape of the lumbar region, the right L4/5 posterior neuroforamen was identified fluoroscopically. The skin was anesthetized via a 25-gauge 1.5-inch needle with 1% lidocaine solution. At this point, a 25-gauge 3.5-inch spinal needle was atraumatically introduced and advanced under fluoroscopic guidance through the posterior right L4/5 neuroforamen to approximately the anterior aspect of the canal. Depth was confirmed on lateral view. Following negative aspiration, injection of approximately 1.5cc of Isovue 200 under live fluoroscopy in the AP view confirmed excellent flow along the nerve root, into the epidural space without vascular or intrathecal uptake observed Radiological data, including multiple fluoroscopic views of the lumbosacral spine, reveal a spinal needle at the right L4/5 posterior neuroforamen. Subsequent views show flow of contrast material flowing superiorly and inferiorly along the nerve root confirming epidural flow. Subsequently, a test dose of 1.5cc of 1% lidocaine solution was administered and patient was observed for two minutes for signs or symptoms of complications, including abdominal pain, shortness of breath, bilateral upper or lower extremity weakness, nausea and vomiting, prior to steroid injection. At this point, a total of 2cc or 10mg of dexamethasone and 6mg betamethasone was injected without incident. Attention was then refocused to the left L4/5 level where the identical procedure was replicated. The procedure tolerated the procedure well without signs or symptoms of complications prior to transfer to the recovery area continued monitoring without incident. The patient was then transferred to the recovery area where they were observed for an appropriate time after the injection. The patient reported a VAS score of 7 prior to the procedure and a post-procedure VAS of 0. POST OP INSTRUCTIONS The patient was provided a Pain Log to continue to record their response to the target-specific procedure prior to follow-up visit with their referring physician. Additionally, specific post-injection care instructions and a contact number to our office were provided if concerns arise regarding possible complications associated with the procedure are suspected.
== END 2025-07-27 16:08 | disposition home or self-care (01) ==
LOC: RAD 13:42
PROVIDERS: PCP Family Medicine; Referring Provider Physical Medicine & Rehabilitation; Visit Provider Physical Medicine & Rehabilitation
DX: M48.061 Spinal stenosis, lumbar region without neurogenic claudication (principal); M51.16 Intervertebral disc disorders with radiculopathy, lumbar region; M47.26 Other spondylosis with radiculopathy, lumbar region
CPT/HCPCS: 64483; 99152; J0702; J1100; J2250